=== PATIENT | female | born 1975 | race Two or more races ===

== ENCOUNTER 2017-04-21 19:28 | Emergency (ER) | payer MEDICAID ==
[~2017-04-21] VITALS: Ht 162.6 cm; Wt 78.5 kg
[2017-04-21] MEDS ORDERED: LEVETIRACETAM INJ 1,000 MG in SODIUM CHL 0.9% 100 ML IV ONE (19:45)
[2017-04-21] MEDS ORDERED: LEVETIRACETAM 500 MG/5ML INJ IV ONE (20:02)
[2017-04-21 20:22] LABS: Basophils # (auto) 0.1 uL; Basophils % (auto) 1.2 % (0.0-2.0); Eosinophils # (auto) 0.1 uL; Eosinophils % (auto) 2.4 % (0.0-7.0); Hematocrit 41.1 % (36.0-46.0); Hemoglobin 13.7 g/dL (12.2-16.2); Lymphocytes # (auto) 1.4 uL; Lymphocytes % (auto) 31.8 % (10.0-50.0); Mean Corpuscular Hemoglobin 29.2 pg (28.0-32.0); Mean Corpuscular Hgb Conc. 33.3 g/dL (32.0-36.0); Mean Corpuscular Volume 87.5 fL (80.0-100.0); Mean Platelet Volume 8.3 fL (6.9-10.8); Monocytes # (auto) 0.3 uL; Monocytes % (auto) 5.8 % (0.0-12.0); Neutrophils # (auto) 2.5 uL; Neutrophils % (auto) 58.8 % (37.0-80.0); Platelet Count (auto) 217 10^3/uL (140-450); Red Cell Distribution Width 13.2 % (11.8-14.3); White Blood Cell 4.3 10^3/uL (4.4-10.8)
[2017-04-21 20:45] LABS: Albumin 4.1 g/dL (3.4-5.0); BUN/Creatinine Ratio 25.4; Calcium 8.6 mg/dL (8.5-10.1); Potassium 3.9 mmol/L (3.5-5.1)
[2017-04-21] MEDS ORDERED: ONDANSETRON HCL 4 MG/2 ML VIAL IV ONE (20:45)
[2017-04-21 20:46] VITALS: BP 124/76
[2017-04-21 20:48] LABS: Bilirubin, Total 0.4 mg/dL (0.2-1.0); Total Protein 7.9 g/dL (6.4-8.2)
== END 2017-04-21 21:12 | disposition home or self-care (01) ==
LOC: ER 19:28 → EDBD 19:28 → ER 21:12
DX: R56.9 Unspecified convulsions (principal); Z90.710 Acquired absence of both cervix and uterus; Z90.49 Acquired absence of other specified parts of digestive tract
CPT/HCPCS: 36415; 80053; 85025; 94761; 96365; 96375; 99284; J1953; J2405

== ENCOUNTER 2017-06-26 08:18 | Day surgery (SDC) | payer MEDICAID ==
[~2017-06-26] VITALS: Ht 162.6 cm; Wt 81.6 kg
[~2017-06-26 08:18] MED LIST: DULO20CA PO; HYDR-4683 PO; LAM100T PO
[2017-06-26] MEDS ORDERED: SODIUM CHLORIDE LOCK 10 ML ONE (08:38)
[2017-06-26] MEDS ORDERED: LIDOCAINE VISCOUS 2% 15ML UD ONE (08:38)
[2017-06-26] MEDS ORDERED: diphenhdrAMINE HCL 50 MG/1 ML VL ONE (08:39)
[2017-06-26] MEDS: MIDAZOLAM HCL 5 MG/ML-1ML VIAL ONE ×4 (09:26→09:39)
[2017-06-26] MEDS: fentaNYL CITRATE 100 MCG/2 ML VL ONE ×3 (09:26→09:35)
[2017-06-26 10:29] VITALS: BP 118/76
== END 2017-06-26 10:32 | disposition home or self-care (01) ==
LOC: GI 08:18
PROVIDERS: ATTEND Internal Medicine Gastroenterology
DX: K64.8 Other hemorrhoids (principal); K29.60 Other gastritis without bleeding; Z88.6 Allergy status to analgesic agent; Z68.30 Body mass index [BMI] 30.0-30.9, adult; R56.9 Unspecified convulsions; Z90.49 Acquired absence of other specified parts of digestive tract; Z98.84 Bariatric surgery status; Z90.710 Acquired absence of both cervix and uterus
CPT/HCPCS: 43239; 45378; J1200; J3010; 99152; J2250